=== PATIENT | male | born 1975 | race Caucasian/White ===

== ENCOUNTER 2020-11-26 11:04 | Emergency (ER) | payer OTHER ==
[~2020-11-26] VITALS: Ht 170.2 cm; Wt 79.4 kg
[2020-11-26 11:38] VITALS: BP 162/108
[2020-11-26] MEDS ORDERED: ACETAMINOPHEN 500 MG TAB PO ONE (11:45)
[2020-11-26] MEDS ORDERED: HCTZ 25 MG TAB PO ONE (11:45)
[2020-11-26] MEDS ORDERED: cefTRIAXone SOD 1,000 MG VL IM ONE (11:45)
== END 2020-11-26 13:31 | disposition home or self-care (01) ==
LOC: ER 11:04
DX: U07.1 COVID-19 (principal); J20.9 Acute bronchitis, unspecified; I10 Essential (primary) hypertension; J03.90 Acute tonsillitis, unspecified
CPT/HCPCS: 36415; 71045; 87070; 87426; 87804; 87880; 96372; 99284; C9803; J0696; U0003

== ENCOUNTER → 2020-11-27 | Outpatient (CLI) | payer OTHER ==
[~2020-11-27] VITALS: Ht 170.2 cm; Wt 79.4 kg
[2020-11-27 11:35] VITALS: BP 177/106
== END | disposition home or self-care (01) ==
LOC: ER 11:20
PROVIDERS: ATTEND Internal Medicine
DX: R05 Cough (principal); J20.9 Acute bronchitis, unspecified; J03.90 Acute tonsillitis, unspecified; I10 Essential (primary) hypertension